=== PATIENT | female | born 1975 | race Caucasian/White ===

== ENCOUNTER 2018-08-08 22:32 | Emergency (ER) | payer SELFPAY ==
[~2018-08-08] VITALS: Ht 162.6 cm; Wt 72.7 kg
[2018-08-09 00:17] LABS: BASOPHILS % (AUTO) 0.9 % (0.0-2.0); EOSINOPHILS % (AUTO) 2.4 % (1.0-6.0); HEMATOCRIT 35.5 % (36-46); LYMPHOCYTES % (AUTO) 47.6 % (22.0-44.0); MEAN CORPUSCULAR HEMOGLOBIN 19.5 pg (26.0-34.0); MEAN CORPUSCULAR HGB CONC 30.9 G/dL (31.0-37.0); MEAN CORPUSCULAR VOLUME 63 fL (80-100); MONOCYTES # (AUTO) 0.7 K/uL (0.1-1.0); MONOCYTES % (AUTO) 6.3 % (2.0-9.0); NEUTROPHILS # (AUTO) 4.5 K/uL (1.8-7.7); NEUTROPHILS % (AUTO) 42.8 % (40.0-70.0); PLATELET COUNT (AUTO) 590 K/uL (150-450); RED BLOOD CELL COUNT(AUTO) 5.64 MIL/uL (4.00-5.20); RED CELL DISTRIBUTION WIDTH 20.2 % (11.5-14.5)
[2018-08-09 00:20] LABS: ANION GAP 9 mmol/L (8-16); CALCIUM, TOTAL 8.8 mg/dL (8.8-10.5); CARBON DIOXIDE 28 mmol/L (22-29); CHLORIDE 104 mmol/L (98-107); CREATININE 0.61 mg/dL (0.60-1.30); GLOMERULAR FILTR. RATE CALC > 60 mL/min (>60); GLUCOSE,RANDOM 94 mg/dL (70-110); POTASSIUM 3.4 mmol/L (3.5-5.1); SODIUM SERUM 141 mmol/L (136-145); UREA NITROGEN, BLOOD 16 mg/dL (7-18)
[2018-08-09 00:32] LABS: ALANINE AMINOTRANSFERASE 34 U/L (12-78); ALBUMIN 3.7 g/dL (3.4-5.0); ALKALINE PHOSPHATASE 79 U/L (46-116); ASPARTATE AMINOTRANSFERASE 21 U/L (15-37); BILIRUBIN,TOTAL 0.5 mg/dL (0.1-1.0); HCG,QUANTITATIVE 1 mIU/mL (0-6)
[2018-08-09] MEDS ORDERED: DIVALPROEX SODIUM 500 MG ER TABLET PO ONE (03:15)
[2018-08-09] MEDS ORDERED: LORazepam 2 MG TABLET PO ONE (03:15)
[2018-08-09 03:25] VITALS: BP 131/89
== END 2018-08-09 03:44 | disposition home or self-care (01) ==
LOC: EDBD → EMS 22:34
DX: F31.9 Bipolar disorder, unspecified (principal); F22 Delusional disorders; F17.210 Nicotine dependence, cigarettes, uncomplicated
CPT/HCPCS: 36415; 80053; 84702; 85025; 99284; G0480

== ENCOUNTER 2021-03-12 12:24 | Inpatient (IN) | payer MEDICAID ==
[~2021-03-12] VITALS: Ht 167.6 cm; Wt 140.2 kg
[~2021-03-12 12:24] MED LIST: RISP1TAB48 PO
[2021-03-12] MEDS ORDERED: GABA-1216 PO (13:30)
[2021-03-12] MEDS ORDERED: GABA-1181 PO (13:30)
[2021-03-12] MEDS ORDERED: FOLI0.4T6 PO (13:31)
[2021-03-12] MEDS ORDERED: INFLUENZA VIRUS VACCINE QVS 2021-22 (6MO+)/PF 60 MCG/0.5 ML SYRINGE IM. ONE (13:45)
[2021-03-12] MEDS ORDERED: PNEUMOCOCCAL VACCINE POLYVALENT 0.5 ML VIAL [PPSV23] IM. ONE (13:45)
[2021-03-12 13:50] VITALS: BP 118/78
[2021-03-12 13:53] LABS: GLUCOMETER DEV NAME(LOC) POC.BV
[2021-03-12] MEDS ORDERED: LORazepam 2 MG/ML VIAL ONE (14:52)
[2021-03-12] MEDS ORDERED: DiphenhydrAMINE HCL 50 MG/ML VIAL IM ONE (15:00)
[2021-03-12] MEDS ORDERED: HALOPERIDOL LACTATE 5 MG/ML VIAL IM ONE (15:00)
[2021-03-12] MEDS ORDERED: LORazepam 2 MG/ML VIAL IM ONE (15:00)
[2021-03-12 16:16] VITALS: BP 137/82
[2021-03-12] MEDS: HALOPERIDOL 5 MG TABLET PO PRN (18:48)
[2021-03-12] MEDS: LORazepam 2 MG TABLET PO PRN (18:48)
[2021-03-12] MEDS: ZOLPIDEM TARTRATE 10 MG TABLET PO PRN (20:49)
[2021-03-13 05:00] VITALS: BP 132/78
[2021-03-13] MEDS: HALOPERIDOL 5 MG TABLET PO PRN ×3 (05:18→14:26)
[2021-03-13] MEDS: LORazepam 2 MG TABLET PO PRN ×3 (05:18→14:26)
[2021-03-13 08:08] LABS: BASOPHILS % (AUTO) 0.6 % (0.0-2.0); HEMATOCRIT 33.9 % (36-46); HEMOGLOBIN 10.5 g/dL (12.0-16.0); LYMPHOCYTES # (AUTO) 2.9 K/uL (1.0-4.8); LYMPHOCYTES % (AUTO) 29.1 % (22.0-44.0); MEAN CORPUSCULAR HEMOGLOBIN 20.4 pg (26.0-34.0); MEAN CORPUSCULAR VOLUME 66 fL (80-100); MONOCYTES # (AUTO) 0.6 K/uL (0.1-1.0); MONOCYTES % (AUTO) 5.8 % (2.0-9.0); NEUTROPHILS # (AUTO) 6.2 K/uL (1.8-7.7); NEUTROPHILS % (AUTO) 62.5 % (40.0-70.0); PLATELET COUNT (AUTO) 383 K/uL (150-450); RED BLOOD CELL COUNT(AUTO) 5.16 MIL/uL (4.00-5.20)
[2021-03-13 08:11] LABS: HEMOGLOBIN A1C 5.5 % (3.8-5.6)
[2021-03-13 08:31] LABS: ALANINE AMINOTRANSFERASE 35 U/L (12-78); ALBUMIN 3.4 g/dL (3.4-5.0); ALKALINE PHOSPHATASE 89 U/L (46-116); ANION GAP 4 mmol/L (8-16); ASPARTATE AMINOTRANSFERASE 25 U/L (15-37); BILIRUBIN,TOTAL 0.8 mg/dL (0.1-1.0); CALCIUM, TOTAL 8.6 mg/dL (8.8-10.5); CARBON DIOXIDE 29 mmol/L (22-29); CHLORIDE 107 mmol/L (98-107); CHOL/HDL RATIO 2.4 (3.9-5.7); CHOLESTEROL 137 mg/dL (131-200); CREATININE 0.58 mg/dL (0.60-1.30); FREE T4 (FREE THYROXINE) 1.32 ng/dL (0.76-1.46); GLOMERULAR FILTR. RATE CALC > 60 mL/min (>60); GLUCOSE,RANDOM 105 mg/dL (70-110); HDL CHOLESTEROL 56 mg/dL (40-60); LDL CHOL (CALC.) 67 mg/dL (0-130); POTASSIUM 3.8 mmol/L (3.5-5.1); SODIUM SERUM 140 mmol/L (136-145); THYROID STIMULATING HORMONE 1.75 uIU/mL (0.36-3.74); TOTAL PROTEIN, SERUM 7.8 g/dL (6.4-8.2); TRIGLYCERIDES 71 mg/dL (15-150); UREA NITROGEN, BLOOD 13 mg/dL (7-18)
[2021-03-13] MEDS: RisperiDONE 1 MG TABLET PO SCH ×2 (10:49→16:19)
[2021-03-13] MEDS: GABAPENTIN 300 MG CAPSULE PO SCH (10:50)
[2021-03-13] MEDS ORDERED: DOCUSATE SODIUM 100 MG CAPSULE PO PRN (11:45)
[2021-03-13] MEDS ORDERED: IBUPROFEN 400 MG TABLET PO PRN (11:45)
[2021-03-13] MEDS ORDERED: MAGNESIUM HYDROXIDE SUSPENSION 30 ML UDCUP PO PRN (11:45)
[2021-03-13] MEDS ORDERED: ONDANSETRON HCL 4 MG TABLET PO PRN (11:45)
[2021-03-13] MEDS ORDERED: ACETAMINOPHEN 325 MG TABLET PO PRN (11:45)
[2021-03-13] MEDS ORDERED: ALBUTEROL SULFATE HFA 90 MCG/PUFF 8 GM INHALER IH PRN (11:45)
[2021-03-13] MEDS ORDERED: PETROLATUM,WHITE 28 GM JELLY TP PRN (11:45)
[2021-03-13] MEDS ORDERED: LOPERAMIDE HCL 2 MG CAPSULE PO PRN (11:45)
[2021-03-13] MEDS ORDERED: CloNIDine HCL 0.1 MG TABLET PO PRN (11:45)
[2021-03-13] MEDS ORDERED: GuaiFENesin/D-METHORPHAN [SUGAR-FREE] 200-20MG/10 ML SYRUP UDCUP PO PRN (11:45)
[2021-03-13] MEDS ORDERED: MAG HYDROX/AL HYDROX/SIMETH ES 30 ML SUSPENSION UDCUP PO PRN (11:45)
[2021-03-13] MEDS ORDERED: NICOTINE 14 MG/24 HOUR PATCH TD PRN (11:45)
[2021-03-13 16:34] VITALS: BP 115/82
[2021-03-13] MEDS: ZOLPIDEM TARTRATE 10 MG TABLET PO PRN (23:18)
[2021-03-14] MEDS: LORazepam 2 MG TABLET PO PRN ×4 (00:48→18:19)
[2021-03-14] MEDS: HALOPERIDOL 5 MG TABLET PO PRN ×4 (00:48→18:19)
[2021-03-14 01:00] VITALS: BP 132/82
[2021-03-14 05:07] LABS: RPR QUANT. (TITER) Non Reactive (NonRea<1:1)
[2021-03-14 08:19] VITALS: BP 125/78
[2021-03-14] MEDS: RisperiDONE 1 MG TABLET PO SCH ×2 (08:21→17:50)
[2021-03-14] MEDS: GABAPENTIN 300 MG CAPSULE PO SCH (08:21)
[2021-03-14 16:16] VITALS: BP 128/78
[2021-03-14] MEDS: ZOLPIDEM TARTRATE 10 MG TABLET PO PRN (22:00)
[2021-03-15 00:49] VITALS: BP 120/74
[2021-03-15] MEDS: RisperiDONE 1 MG TABLET PO SCH ×2 (08:07→16:12)
[2021-03-15] MEDS: GABAPENTIN 300 MG CAPSULE PO SCH (08:07)
[2021-03-15] MEDS: LORazepam 2 MG TABLET PO PRN ×2 (08:08→14:30)
[2021-03-15 08:32] VITALS: BP 149/86
[2021-03-15] MEDS: HALOPERIDOL 5 MG TABLET PO PRN (08:33)
[2021-03-15 10:00] VITALS: BP 134/84
[2021-03-15 16:08] VITALS: BP 126/86
[2021-03-16] MEDS: LORazepam 2 MG TABLET PO PRN (00:24)
[2021-03-16] MEDS: ZOLPIDEM TARTRATE 10 MG TABLET PO PRN (00:24)
[2021-03-16 01:46] VITALS: BP 116/71
[2021-03-16 08:25] VITALS: BP 145/90
[2021-03-16] MEDS: RisperiDONE 1 MG TABLET PO SCH (08:38)
[2021-03-16] MEDS: GABAPENTIN 300 MG CAPSULE PO SCH (08:38)
== END 2021-03-16 21:56 | disposition home or self-care (01) | DRG 753 ==
LOC: B3A 13:37
PROVIDERS: ADMIT Psychiatry & Neurology Child & Adolescent Psychiatry; ATTEND Psychiatry & Neurology Child & Adolescent Psychiatry
DX: F31.2 Bipolar disorder, current episode manic severe with psychotic features (principal); D64.9 Anemia, unspecified; E66.01 Morbid (severe) obesity due to excess calories; I10 Essential (primary) hypertension; Z20.822 Contact with and (suspected) exposure to COVID-19; Z68.42 Body mass index [BMI] 45.0-49.9, adult
CPT/HCPCS: 80053; 80061; 83036; 84439; 84443; 85025; 86592; 86593; 86780; 87081; 90686; 90732; J1200; J1630; J2060

== ENCOUNTER 2022-11-17 13:05 | Inpatient (IN) | payer MEDICAID ==
[~2022-11-17] VITALS: Ht 165.1 cm; Wt 136.1 kg
[~2022-11-17 13:05] MED LIST changes: +QUET25TA PO; -RISP1TAB48 PO
[2022-11-17] MEDS ORDERED: ZOLPIDEM TARTRATE 10 MG TABLET PO PRN (13:45)
[2022-11-17 14:35] VITALS: RESP 18; TEMP 98.2
[2022-11-17 15:00] VITALS: BP 118/69; PULSE 64; RESP 18; TEMP 98.1
[2022-11-17] MEDS: LORazepam 2 MG TABLET PO PRN (16:18)
[2022-11-17] MEDS: HALOPERIDOL 5 MG TABLET PO PRN (16:18)
[2022-11-17 20:00] VITALS: PULSE 80; RESP 18; TEMP 97.6; O2SAT 98
[2022-11-18] MEDS ORDERED: GuaiFENesin/D-METHORPHAN [SUGAR-FREE] 200-20MG/10 ML SYRUP UDCUP PO PRN (07:45)
[2022-11-18] MEDS ORDERED: LOPERAMIDE HCL 2 MG CAPSULE PO PRN (07:45)
[2022-11-18] MEDS ORDERED: IBUPROFEN 400 MG TABLET PO PRN (07:45)
[2022-11-18] MEDS ORDERED: ONDANSETRON HCL 4 MG TABLET PO PRN (07:45)
[2022-11-18] MEDS ORDERED: CloNIDine HCL 0.1 MG TABLET PO PRN (07:45)
[2022-11-18] MEDS ORDERED: ALBUTEROL SULFATE HFA 90 MCG/PUFF 8 GM INHALER IH PRN (07:45)
[2022-11-18] MEDS ORDERED: DOCUSATE SODIUM 100 MG CAPSULE PO PRN (07:45)
[2022-11-18] MEDS ORDERED: MAG HYDROX/AL HYDROX/SIMETH ES 30 ML SUSPENSION UDCUP PO PRN (07:45)
[2022-11-18] MEDS ORDERED: NICOTINE 14 MG/24 HOUR PATCH TD PRN (07:45)
[2022-11-18] MEDS ORDERED: MAGNESIUM HYDROXIDE SUSPENSION 30 ML UDCUP PO PRN (07:45)
[2022-11-18] MEDS ORDERED: ACETAMINOPHEN 325 MG TABLET PO PRN (07:45)
[2022-11-18] MEDS ORDERED: PETROLATUM,WHITE 28 GM JELLY TP PRN (07:45)
[2022-11-18 07:57] LABS: BASOPHILS % (AUTO) 0.5 % (0.0-2.0); EOSINOPHILS % (AUTO) 2.1 % (1.0-6.0); HEMATOCRIT 34.4 % (36-46); HEMOGLOBIN 10.6 g/dL (12.0-16.0); LYMPHOCYTES % (AUTO) 35.9 % (22.0-44.0); MEAN CORPUSCULAR HGB CONC 30.8 G/dL (31.0-37.0); MEAN CORPUSCULAR VOLUME 71 fL (80-100); MONOCYTES # (AUTO) 0.7 K/uL (0.1-1.0); MONOCYTES % (AUTO) 6.4 % (2.0-9.0); NEUTROPHILS # (AUTO) 6.1 K/uL (1.8-7.7); NEUTROPHILS % (AUTO) 55.1 % (40.0-70.0); PLATELET COUNT (AUTO) 465 K/uL (150-450); RED BLOOD CELL COUNT(AUTO) 4.82 MIL/uL (4.00-5.20); RED CELL DISTRIBUTION WIDTH 18.9 % (11.5-14.5)
[2022-11-18] MEDS: LORazepam 2 MG TABLET PO PRN ×3 (08:00→20:57)
[2022-11-18 08:19] LABS: HEMOGLOBIN A1C 5.3 % (3.8-5.6)
[2022-11-18 08:22] LABS: ALANINE AMINOTRANSFERASE 15 U/L (12-78); ALBUMIN 2.5 g/dL (3.4-5.0); ALKALINE PHOSPHATASE 65 U/L (46-116); ANION GAP 2 mmol/L (8-16); ASPARTATE AMINOTRANSFERASE 13 U/L (15-37); BILIRUBIN,TOTAL 0.3 mg/dL (0.1-1.0); CALCIUM, TOTAL 8.3 mg/dL (8.8-10.5); CARBON DIOXIDE 30 mmol/L (22-29); CHLORIDE 106 mmol/L (98-107); CHOLESTEROL 124 mg/dL (131-200); FREE T4 (FREE THYROXINE) 1.13 ng/dL (0.76-1.46); GLOMERULAR FILTR. RATE CALC > 60 mL/min (>60); GLUCOSE,RANDOM 112 mg/dL (70-110); HCG,QUANTITATIVE 1 mIU/mL (0-6); HDL CHOLESTEROL 41 mg/dL (40-60); LDL CHOL (CALC.) 62 mg/dL (0-130); POTASSIUM 3.9 mmol/L (3.5-5.1); SODIUM SERUM 138 mmol/L (136-145); THYROID STIMULATING HORMONE 1.26 uIU/mL (0.36-3.74); TOTAL PROTEIN, SERUM 6.6 g/dL (6.4-8.2); TRIGLYCERIDES 103 mg/dL (15-150)
[2022-11-18 08:23] LABS: VALPROIC ACID < 3 mcg/mL (50-100)
[2022-11-18 09:40] VITALS: BP 103/58; PULSE 78; RESP 19; TEMP 98.4; O2SAT 98
[2022-11-18] MEDS: HALOPERIDOL 5 MG TABLET PO PRN (14:37)
[2022-11-18] MEDS: QUEtiapine FUMARATE 25 MG TABLET PO SCH (20:58)
[2022-11-19 06:57] VITALS: BP 98/62; PULSE 72; RESP 18; TEMP 98.2
[2022-11-19 08:02] LABS: THYROID STIMULATING HORMONE 1.89 uIU/mL (0.36-3.74)
[2022-11-19 08:03] LABS: HEMOGLOBIN A1C 5.4 % (3.8-5.6)
[2022-11-19 08:26] VITALS: BP 104/62; PULSE 73; RESP 16; TEMP 97.9; O2SAT 98
[2022-11-19] MEDS: QUEtiapine FUMARATE 25 MG TABLET PO SCH (08:27)
[2022-11-19] MEDS: LORazepam 2 MG TABLET PO PRN ×2 (09:15→14:19)
[2022-11-19] MEDS ORDERED: QUET25TA PO (10:49)
[2022-11-20 03:06] LABS: HEPATITIS C AB (EIA) Non Reactive (Non Reactive)
== END 2022-11-19 14:00 | disposition home or self-care (01) | DRG 753 ==
LOC: B3A 14:13
PROVIDERS: ADMIT Psychiatry & Neurology Child & Adolescent Psychiatry; ATTEND Psychiatry & Neurology Child & Adolescent Psychiatry
DX: F31.5 Bipolar disorder, current episode depressed, severe, with psychotic features (principal); R45.851 Suicidal ideations; Z88.5 Allergy status to narcotic agent; Z88.8 Allergy status to other drugs, medicaments and biological substances
CPT/HCPCS: 80053; 80061; 80164; 83036; 84436; 84439; 84443; 84702; 85025; 86592; 86803; 87340; G0480

== ENCOUNTER 2023-11-15 10:21 | Emergency (ER) | payer MEDICARE, OTHER ==
[~2023-11-15] VITALS: Ht 162.6 cm; Wt 113.6 kg
[~2023-11-15 10:21] MED LIST changes: +BUPR-49 PO; +DIVA500T69 PO; +GABA-1181 PO; +HYDR50CA7 PO; +QUET200T5 PO; -QUET25TA PO
[2023-11-15 10:39] VITALS: BP 145/73; PULSE 88; RESP 18; TEMP 98
[2023-11-15] MEDS ORDERED: RISP3TAB77 PO (10:50)
[2023-11-15] MEDS ORDERED: LOXA50CA PO (10:50)
[2023-11-15] MEDS ORDERED: QUET200T PO (10:50)
[2023-11-15] MEDS ORDERED: PRAZ1 PO (10:50)
[2023-11-15] MEDS ORDERED: CHOL500013 PO (10:50)
[2023-11-15] MEDS ORDERED: HYDR-4527 PO (10:50)
[2023-11-15] MEDS ORDERED: CEFU250T87 PO (10:50)
== END 2023-11-15 12:09 | disposition home or self-care (01) ==
LOC: EMS 10:21
DX: F41.9 Anxiety disorder, unspecified (principal); F17.210 Nicotine dependence, cigarettes, uncomplicated; F12.90 Cannabis use, unspecified, uncomplicated; Z88.5 Allergy status to narcotic agent; Z88.8 Allergy status to other drugs, medicaments and biological substances
CPT/HCPCS: 99283; Z7502

== ENCOUNTER 2024-01-21 21:02 | Inpatient (IN) | payer MEDICARE, MEDICAID ==
[~2024-01-21] VITALS: Ht 165.1 cm; Wt 126.0 kg
[~2024-01-21 21:02] MED LIST changes: -BUPR-49 PO; +CEFU250T87 PO; +CHOL500013 PO; -GABA-1181 PO; +HYDR-4527 PO; -HYDR50CA7 PO; +LOXA50CA PO; +PRAZ1 PO; +QUET200T PO; -QUET200T5 PO; +RISP3TAB77 PO
[2024-01-21] MEDS ORDERED: HALOPERIDOL 5 MG TABLET PO PRN (21:30)
[2024-01-21] MEDS ORDERED: INFLUENZA VIRUS VACCINE TVS (6MO+) 2024-25/PF 45 MCG/0.5 ML SYRINGE IM. ONE (22:30)
[2024-01-21] MEDS: ZOLPIDEM TARTRATE 10 MG TABLET PO PRN (22:47)
[2024-01-21 23:48] VITALS: BP 133/73; PULSE 66; RESP 18; TEMP 97.6; O2SAT 96
[2024-01-22] MEDS ORDERED: INFLUENZA VIRUS VACCINE TVS (6MO+) 2024-25/PF 45 MCG/0.5 ML SYRINGE IM. ONE (01:00)
[2024-01-22 08:02] LABS: BASOPHILS % (AUTO) 0.5 % (0.0-2.0); EOSINOPHILS % (AUTO) 2.3 % (1.0-6.0); HEMATOCRIT 38.2 % (36-46); LYMPHOCYTES # (AUTO) 4.3 K/uL (1.0-4.8); LYMPHOCYTES % (AUTO) 45.4 % (22.0-44.0); MEAN CORPUSCULAR HEMOGLOBIN 21.9 pg (26.0-34.0); MEAN CORPUSCULAR HGB CONC 31.3 G/dL (31.0-37.0); MEAN CORPUSCULAR VOLUME 70 fL (80-100); MONOCYTES # (AUTO) 0.5 K/uL (0.1-1.0); MONOCYTES % (AUTO) 5.4 % (2.0-9.0); NEUTROPHILS # (AUTO) 4.4 K/uL (1.8-7.7); NEUTROPHILS % (AUTO) 46.4 % (40.0-70.0); PLATELET COUNT (AUTO) 409 K/uL (150-450); RED BLOOD CELL COUNT(AUTO) 5.48 MIL/uL (4.00-5.20); RED CELL DISTRIBUTION WIDTH 19.5 % (11.5-14.5); WHITE BLOOD COUNT (AUTO) 9.4 K/uL (4.5-11.0)
[2024-01-22 08:05] LABS: HEMOGLOBIN A1C 5.5 % (3.8-5.6)
[2024-01-22 08:22] LABS: ANION GAP 6 mmol/L (8-16); CARBON DIOXIDE 31 mmol/L (22-29); CHLORIDE 102 mmol/L (98-107); CREATININE 0.55 mg/dL (0.60-1.30); GLUCOSE,RANDOM 92 mg/dL (70-110); POTASSIUM 4.7 mmol/L (3.5-5.1); SODIUM SERUM 139 mmol/L (136-145); UREA NITROGEN, BLOOD 12 mg/dL (7-18)
[2024-01-22 08:23] LABS: ALANINE AMINOTRANSFERASE 20 U/L (12-78); ALKALINE PHOSPHATASE 87 U/L (46-116); ASPARTATE AMINOTRANSFERASE 16 U/L (15-37); BILIRUBIN,TOTAL 0.6 mg/dL (0.1-1.0); CALCIUM, TOTAL 8.9 mg/dL (8.8-10.5); CHOLESTEROL 152 mg/dL (131-200); FREE T4 (FREE THYROXINE) 1.06 ng/dL (0.76-1.46); GLOMERULAR FILTR. RATE CALC > 60 mL/min (>60); HCG,QUANTITATIVE < 1 mIU/mL (0-6); HDL CHOLESTEROL 50 mg/dL (40-60); LDL CHOL (CALC.) 87 mg/dL (0-130); THYROID STIMULATING HORMONE 1.65 uIU/mL (0.36-3.74); TOTAL PROTEIN, SERUM 7.5 g/dL (6.4-8.2); TRIGLYCERIDES 73 mg/dL (15-150)
[2024-01-22 08:31] LABS: RBC MORPHOLOGY COMMENT ABNORMAL RBC MORPH
[2024-01-22 08:33] VITALS: BP 119/65; PULSE 83; RESP 16; TEMP 98; O2SAT 97
[2024-01-22 08:52] LABS: VALPROIC ACID < 3 mcg/mL (50-100)
[2024-01-22] MEDS ORDERED: DOCUSATE SODIUM 100 MG CAPSULE PO PRN (10:45)
[2024-01-22] MEDS ORDERED: MAGNESIUM HYDROXIDE SUSPENSION 30 ML UDCUP PO PRN (10:45)
[2024-01-22] MEDS ORDERED: LOPERAMIDE HCL 2 MG CAPSULE PO PRN (10:45)
[2024-01-22] MEDS ORDERED: PETROLATUM,WHITE 28 GM JELLY TP PRN (10:45)
[2024-01-22] MEDS ORDERED: NICOTINE 14 MG/24 HOUR PATCH TD PRN (10:45)
[2024-01-22] MEDS ORDERED: CloNIDine HCL 0.1 MG TABLET PO PRN (10:45)
[2024-01-22] MEDS ORDERED: MAG HYDROX/ALUMINUM HYD/SIMETH ES 30 ML SUSPENSION UDCUP PO PRN (10:45)
[2024-01-22] MEDS ORDERED: ONDANSETRON 4 MG TABLET PO PRN (10:45)
[2024-01-22] MEDS ORDERED: ALBUTEROL SULFATE HFA 90 MCG/PUFF 8 GM INHALER IH PRN (10:45)
[2024-01-22] MEDS ORDERED: GuaiFENesin/D-METHORPHAN [SUGAR-FREE] 200-20MG/10 ML SYRUP UDCUP PO PRN (10:45)
[2024-01-22] MEDS: LORazepam 2 MG TABLET PO PRN (17:48)
[2024-01-22 20:20] VITALS: BP 130/84; PULSE 99; RESP 17; TEMP 97.6; O2SAT 98
[2024-01-22] MEDS: RisperiDONE 3 MG TABLET PO SCH (21:00)
[2024-01-23] VITALS (14 sets, daily range): BP systolic 99–164; BP diastolic 43–98; PULSE 75–100; RESP 16–18; TEMP 96.4–97.9; O2SAT 97–100
[2024-01-23] MEDS: IBUPROFEN 400 MG TABLET PO PRN (06:23)
[2024-01-23] MEDS: CHOLECALCIFEROL (VIT D3) 5,000 [125 MCG] UNITS CAPSULE PO SCH (08:34)
[2024-01-23] MEDS: MULTIVITAMINS, THERAPEUTIC TABLET PO SCH (08:49)
[2024-01-23 09:11] LABS: HEMOGLOBIN A1C 5.4 % (3.8-5.6)
[2024-01-23 09:16] LABS: CHOL/HDL RATIO 2.8 (3.9-5.7); THYROID STIMULATING HORMONE 1.78 uIU/mL (0.36-3.74)
[2024-01-23] MEDS: GABAPENTIN 300 MG CAPSULE PO PRN (10:30)
[2024-01-24 04:24] VITALS: RESP 17
[2024-01-24] MEDS: ACETAMINOPHEN 325 MG TABLET PO PRN (04:25)
[2024-01-24 08:30] VITALS: BP 155/86; PULSE 102; RESP 18; TEMP 97.6; O2SAT 98
[2024-01-24] MEDS ORDERED: RISP3TAB77 PO (13:27)
[2024-01-24 14:46] VITALS: RESP 17
== END 2024-01-24 19:00 | disposition home or self-care (01) | DRG 885 ==
LOC: B3A 21:15
PROVIDERS: ADMIT Psychiatry & Neurology Child & Adolescent Psychiatry; ATTEND Psychiatry & Neurology Psychiatry
PROC: GZHZZZZ Group Psychotherapy (ICD-10-PCS; principal; 2024-01-22)
PROC: GZ51ZZZ Individual Psychotherapy, Behavioral (ICD-10-PCS; 2024-01-22)
DX: F25.0 Schizoaffective disorder, bipolar type (principal); R45.851 Suicidal ideations; Z68.41 Body mass index [BMI] 40.0-44.9, adult; E55.9 Vitamin D deficiency, unspecified; F41.9 Anxiety disorder, unspecified; G90.A Postural orthostatic tachycardia syndrome [POTS]; E66.01 Morbid (severe) obesity due to excess calories; G47.00 Insomnia, unspecified; Z79.899 Other long term (current) drug therapy; Z88.5 Allergy status to narcotic agent; Z88.8 Allergy status to other drugs, medicaments and biological substances; Z91.51 Personal history of suicidal behavior; Z98.84 Bariatric surgery status
CPT/HCPCS: 80053; 80061; 80164; 83036; 84439; 84443; 84702; 85025

== ENCOUNTER 2024-01-23 03:57 | Emergency (ER) | payer MEDICARE, OTHER ==
[~2024-01-23 03:57] MED LIST changes: -DIVA500T69 PO; -HYDR-4527 PO; -LOXA50CA PO; -PRAZ1 PO; -QUET200T PO
[2024-01-24] MEDS ORDERED: RISP3TAB77 PO (13:27)
== END 2024-01-23 05:45 | disposition short-term general hospital (02) ==
LOC: EMS 04:03
DX: S00.03XA Contusion of scalp, initial encounter (principal); F32.9 Major depressive disorder, single episode, unspecified; F41.9 Anxiety disorder, unspecified; F12.90 Cannabis use, unspecified, uncomplicated; F17.210 Nicotine dependence, cigarettes, uncomplicated; Z98.890 Other specified postprocedural states; Z88.5 Allergy status to narcotic agent; Z98.84 Bariatric surgery status; W19.XXXA Unspecified fall, initial encounter; Y93.89 Activity, other specified; Y92.89 Other specified places as the place of occurrence of the external cause; Y99.8 Other external cause status
CPT/HCPCS: 99285; Z7502

== ENCOUNTER 2024-01-27 20:16 | Inpatient (IN) | payer MEDICARE, MEDICAID ==
[~2024-01-27] VITALS: Ht 165.1 cm; Wt 127.9 kg
[~2024-01-27 20:16] MED LIST changes: -CEFU250T87 PO; -CHOL500013 PO
[2024-01-27 20:59] LABS: BASOPHILS % (AUTO) 0.6 % (0.0-2.0); EOSINOPHILS % (AUTO) 1.9 % (1.0-6.0); HEMATOCRIT 34.9 % (36-46); HEMOGLOBIN 10.8 g/dL (12.0-16.0); LYMPHOCYTES # (AUTO) 4.3 K/uL (1.0-4.8); LYMPHOCYTES % (AUTO) 36.8 % (22.0-44.0); MEAN CORPUSCULAR HEMOGLOBIN 21.8 pg (26.0-34.0); MEAN CORPUSCULAR VOLUME 70 fL (80-100); MONOCYTES # (AUTO) 0.8 K/uL (0.1-1.0); MONOCYTES % (AUTO) 6.6 % (2.0-9.0); NEUTROPHILS # (AUTO) 6.3 K/uL (1.8-7.7); NEUTROPHILS % (AUTO) 54.1 % (40.0-70.0); PLATELET COUNT (AUTO) 393 K/uL (150-450); RED BLOOD CELL COUNT(AUTO) 4.97 MIL/uL (4.00-5.20); RED CELL DISTRIBUTION WIDTH 20.3 % (11.5-14.5); WHITE BLOOD COUNT (AUTO) 11.6 K/uL (4.5-11.0)
[2024-01-27 21:07] LABS: ANION GAP 6 mmol/L (8-16); CALCIUM, TOTAL 8.5 mg/dL (8.8-10.5); CARBON DIOXIDE 30 mmol/L (22-29); CHLORIDE 105 mmol/L (98-107); CREATININE 0.71 mg/dL (0.60-1.30); GLOMERULAR FILTR. RATE CALC > 60 mL/min (>60); GLUCOSE,RANDOM 97 mg/dL (70-110); SODIUM SERUM 141 mmol/L (136-145); UREA NITROGEN, BLOOD 21 mg/dL (7-18)
[2024-01-27 21:23] LABS: RBC MORPHOLOGY COMMENT ABNORMAL RBC MORPH
[2024-01-27 21:34] LABS: ALCOHOL, BLOOD (SERUM) < 3 mg/dL (0-10)
[2024-01-27] MEDS ORDERED: MAGNESIUM HYDROXIDE SUSPENSION 30 ML UDCUP PO PRN (22:00)
[2024-01-27] MEDS ORDERED: LOPERAMIDE HCL 2 MG CAPSULE PO PRN (22:00)
[2024-01-27] MEDS ORDERED: MAG HYDROX/ALUMINUM HYD/SIMETH ES 30 ML SUSPENSION UDCUP PO PRN (22:00)
[2024-01-27] MEDS ORDERED: GuaiFENesin/D-METHORPHAN [SUGAR-FREE] 200-20MG/10 ML SYRUP UDCUP PO PRN (22:00)
[2024-01-27] MEDS ORDERED: TUBERCULIN, PURIFIED PROTEIN DERIVATIVE 5 TU/0.1 ML SYRINGE ID ONE (22:00)
[2024-01-27] MEDS: LORazepam 2 MG TABLET PO ONE (22:04)
[2024-01-27] MEDS: PROMETHAZINE HCL 25 MG TABLET PO PRN (23:00)
[2024-01-27] MEDS: HydrOXYzine PAMOATE 50 MG CAPSULE PO PRN (23:00)
[2024-01-27] MEDS: OLANZapine 5 MG RAPDIS TABLET PO PRN (23:01)
[2024-01-28] MEDS: ACETAMINOPHEN 325 MG TABLET PO PRN (07:43)
[2024-01-28] MEDS: LORazepam 2 MG TABLET PO PRN (07:44)
[2024-01-28 07:57] LABS: COVID AG,FIA SOURCE NASAL SWAB
[2024-01-28 08:19] LABS: SARS-COV2 (COVID) ANTIGEN,FIA Negative (Negative)
[2024-01-28] MEDS: MULTIVITAMINS WITH MINERALS, THERAPEUTIC TABLET PO SCH (08:58)
[2024-01-28] MEDS: FOLIC ACID 1 MG TABLET PO SCH (08:58)
[2024-01-28] MEDS: DIVALPROEX SODIUM 500 MG ER TABLET PO SCH (08:58)
[2024-01-28] MEDS: OLANZapine 5 MG RAPDIS TABLET PO SCH (08:59)
[2024-01-28] MEDS: THIAMINE 100 MG TABLET PO SCH (08:59)
[2024-01-28 09:11] LABS: CHOL/HDL RATIO 2.4 (3.9-5.7); CHOLESTEROL 125 mg/dL (131-200); FREE T4 (FREE THYROXINE) 1.16 ng/dL (0.76-1.46); HDL CHOLESTEROL 53 mg/dL (40-60); LDL CHOL (CALC.) 57 mg/dL (0-130); THYROID STIMULATING HORMONE 1.85 uIU/mL (0.36-3.74); TRIGLYCERIDES 73 mg/dL (15-150)
[2024-01-28 09:15] VITALS: O2SAT 97
[2024-01-28 12:31] VITALS: BP 110/77; PULSE 74; RESP 20; TEMP 98.1; O2SAT 97
[2024-01-28] MEDS: NALTREXONE HCL 50 MG TABLET PO SCH (13:00)
[2024-01-28] MEDS: MELATONIN 5 MG TABLET PO SCH (20:34)
[2024-01-28] MEDS: QUEtiapine FUMARATE 200 MG TABLET PO SCH (20:34)
[2024-01-28] MEDS: ZOLPIDEM TARTRATE 10 MG TABLET PO PRN (22:39)
[2024-01-28 22:45] VITALS: BP 112/77; PULSE 74; RESP 18; TEMP 97.4; O2SAT 97
[2024-01-29] MEDS: QUEtiapine FUMARATE 100 MG TABLET PO PRN (03:55)
[2024-01-29 09:44] VITALS: BP 130/82; PULSE 100; RESP 18; TEMP 97.9; O2SAT 98
[2024-01-29 09:53] VITALS: BP 130/82; PULSE 100; RESP 18; TEMP 97.9; O2SAT 98
[2024-01-29] MEDS: NYSTATIN 15 GM POWDER BOTTLE TP SCH (09:59)
[2024-01-29] MEDS: HALOPERIDOL DECANOATE 100 MG/ML VIAL IM ONE (17:30)
[2024-01-29 20:18] VITALS: BP 103/62; PULSE 87; RESP 18; TEMP 97.1; O2SAT 100
[2024-01-29] MEDS: HALOPERIDOL 10 MG TABLET PO SCH (22:27)
[2024-01-30 02:00] VITALS: BP 128/72; PULSE 85; RESP 18; TEMP 97; O2SAT 98
[2024-01-30 08:09] VITALS: BP 129/81; PULSE 95; RESP 18; TEMP 96.9; O2SAT 98
[2024-01-30 08:10] VITALS: BP 129/81; PULSE 95; RESP 18; TEMP 96.9; O2SAT 98
[2024-01-30] MEDS: HALOPERIDOL 5 MG TABLET PO PRN (08:14)
[2024-01-30] MEDS: TRIHEXYPHENIDYL HCL 5 MG TABLET PO SCH (08:15)
[2024-01-30] MEDS: HALOPERIDOL DECANOATE 100 MG/ML VIAL IM ONE (18:39)
[2024-01-30] MEDS: HALOPERIDOL 10 MG TABLET PO SCH (20:47)
[2024-01-30 21:50] VITALS: BP 146/50; PULSE 89; RESP 18; TEMP 97.1
[2024-01-30] MEDS: GABAPENTIN 300 MG CAPSULE PO PRN (22:41)
[2024-01-31 00:08] VITALS: BP 142/60; PULSE 86; RESP 18; TEMP 97
[2024-01-31 08:34] VITALS: BP 130/89; PULSE 91; RESP 17; TEMP 97.4; O2SAT 100
[2024-01-31] MEDS ORDERED: PALIPERIDONE PALMITATE 156 MG/ML SYRINGE IM ONE (09:00)
[2024-01-31] MEDS: GABAPENTIN 300 MG CAPSULE PO SCH (09:33)
[2024-01-31] MEDS: PALIPERIDONE PALMITATE 234 MG/1.5 ML SYRINGE IM ONE (12:02)
[2024-01-31 20:37] VITALS: BP 109/70; PULSE 87; RESP 18; TEMP 97.8; O2SAT 99
[2024-02-01 08:30] VITALS: BP 157/101; PULSE 105; RESP 19; TEMP 97.9; O2SAT 97
[2024-02-01 20:32] VITALS: RESP 17; TEMP 97.9
[2024-02-02 08:41] VITALS: BP 133/83; PULSE 98; RESP 18; TEMP 97.7; O2SAT 99
[2024-02-02 20:31] VITALS: BP 158/91; PULSE 87; RESP 18; TEMP 97.8; O2SAT 99
[2024-02-02] MEDS ORDERED: HALO10TA21 PO (21:15)
[2024-02-02] MEDS ORDERED: MELA5TAB40 PO (21:15)
[2024-02-02] MEDS ORDERED: NALT50TA33 PO (21:15)
[2024-02-02] MEDS ORDERED: GABA-1181 PO (21:15)
[2024-02-02] MEDS ORDERED: TRIH5TAB3 PO (21:15)
[2024-02-02] MEDS ORDERED: DIVA-153 PO (21:15)
[2024-02-03 04:31] VITALS: BP 136/87; PULSE 86; RESP 18; TEMP 97.8; O2SAT 99
[2024-02-03 05:31] VITALS: RESP 18
[2024-02-03] MEDS ORDERED: NYST30CR9 TP (09:37)
[2024-02-03 11:33] VITALS: BP 109/81; PULSE 100; RESP 18; TEMP 97.1; O2SAT 99
[2024-02-12] MEDS ORDERED: HALOPERIDOL DECANOATE 100 MG/ML VIAL IM SCH (09:00)
== END 2024-02-03 19:12 | disposition left against medical advice (07) | DRG 885 ==
LOC: EMS 20:16 → EDBEDREQ 01-28 07:52 → 3EI 01-28 10:26 → 3EC 01-29 08:13
PROVIDERS: ADMIT Psychiatry & Neurology Psychiatry; ATTEND Psychiatry & Neurology Psychiatry
PROC: GZHZZZZ Group Psychotherapy (ICD-10-PCS; principal; 2024-01-28)
PROC: GZ51ZZZ Individual Psychotherapy, Behavioral (ICD-10-PCS; 2024-01-28)
DX: F25.0 Schizoaffective disorder, bipolar type (principal); G93.41 Metabolic encephalopathy; R45.851 Suicidal ideations; F43.10 Post-traumatic stress disorder, unspecified; G90.A Postural orthostatic tachycardia syndrome [POTS]; Z20.822 Contact with and (suspected) exposure to COVID-19; G40.409 Other generalized epilepsy and epileptic syndromes, not intractable, without status epilepticus; F17.200 Nicotine dependence, unspecified, uncomplicated; J44.9 Chronic obstructive pulmonary disease, unspecified; Z53.29 Procedure and treatment not carried out because of patient's decision for other reasons; F41.9 Anxiety disorder, unspecified; Z88.5 Allergy status to narcotic agent; Z98.84 Bariatric surgery status; Z88.8 Allergy status to other drugs, medicaments and biological substances; Z91.199 Patient's noncompliance with other medical treatment and regimen due to unspecified reason
CPT/HCPCS: 80048; 80061; 80164; 80173; 83036; 84439; 84443; 84703; 85025; 86592; 87081; 99285; G0480; J1631

== ENCOUNTER 2024-09-16 04:38 | Inpatient (IN) | payer MEDICARE, MEDICAID ==
[~2024-09-16] VITALS: Ht 160 cm; Wt 102.0 kg
[~2024-09-16 04:38] MED LIST changes: +DIVA-153 PO; +GABA-1181 PO; +HALO10TA21 PO; +MELA5TAB40 PO; +NALT50TA33 PO; -RISP3TAB77 PO; +TRIH5TAB3 PO
[2024-09-16] MEDS: LORazepam 2 MG/ML VIAL IM ONE (06:03)
[2024-09-16] MEDS: haloperidoL LACTATE 5 MG/ML VIAL IM ONE (06:03)
[2024-09-16] MEDS: DiphenhydrAMINE HCL 50 MG/ML VIAL IM ONE (06:03)
[2024-09-16 07:34] LABS: BASOPHILS % (AUTO) 0.6 % (0.0-2.0); HEMATOCRIT 38.9 % (36-46); HEMOGLOBIN 12.3 g/dL (12.0-16.0); LYMPHOCYTES # (AUTO) 3.4 K/uL (1.0-4.8); LYMPHOCYTES % (AUTO) 21.6 % (22.0-44.0); MEAN CORPUSCULAR HEMOGLOBIN 24.5 pg (26.0-34.0); MEAN CORPUSCULAR HGB CONC 31.7 G/dL (31.0-37.0); MEAN CORPUSCULAR VOLUME 77 fL (80-100); MONOCYTES # (AUTO) 0.8 K/uL (0.1-1.0); MONOCYTES % (AUTO) 5.1 % (2.0-9.0); NEUTROPHILS # (AUTO) 11.1 K/uL (1.8-7.7); NEUTROPHILS % (AUTO) 70.7 % (40.0-70.0); PLATELET COUNT (AUTO) 424 K/uL (150-450); RED BLOOD CELL COUNT(AUTO) 5.03 MIL/uL (4.00-5.20); RED CELL DISTRIBUTION WIDTH 16.5 % (11.5-14.5); WHITE BLOOD COUNT (AUTO) 15.6 K/uL (4.5-11.0)
[2024-09-16 07:42] LABS: ANION GAP 7 mmol/L (8-16); CALCIUM, TOTAL 8.8 mg/dL (8.8-10.5); CARBON DIOXIDE 28 mmol/L (22-29); CHLORIDE 104 mmol/L (98-107); CREATININE 0.75 mg/dL (0.60-1.30); GLOMERULAR FILTR. RATE CALC > 60 mL/min (>60); GLUCOSE,RANDOM 82 mg/dL (70-110); POTASSIUM 3.9 mmol/L (3.5-5.1); SODIUM SERUM 139 mmol/L (136-145); UREA NITROGEN, BLOOD 15 mg/dL (7-18)
[2024-09-16 08:06] LABS: RBC MORPHOLOGY COMMENT ABNORMAL RBC MORPH
[2024-09-16 09:35] LABS: COVID AG,FIA SOURCE NASAL SWAB
[2024-09-16 10:11] LABS: SARS-COV2 (COVID) ANTIGEN,FIA Negative (Negative)
[2024-09-16] MEDS ORDERED: haloperidoL 5 MG TABLET PO PRN (10:45)
[2024-09-16 12:26] VITALS: O2SAT 100
[2024-09-16 13:20] VITALS: BP 110/98; PULSE 97; RESP 18; TEMP 97.3; O2SAT 100
[2024-09-16] MEDS ORDERED: DOCUSATE SODIUM 100 MG CAPSULE PO PRN (18:30)
[2024-09-16] MEDS ORDERED: ALBUTEROL SULFATE HFA 90 MCG/PUFF 8 GM INHALER IH PRN (18:30)
[2024-09-16] MEDS ORDERED: IBUPROFEN 600 MG TABLET PO PRN (18:30)
[2024-09-16] MEDS ORDERED: BACITRACIN 28 GM OINTMENT TP PRN (18:30)
[2024-09-16] MEDS ORDERED: OMEPRAZOLE 20 MG CAPSULE PO PRN (18:30)
[2024-09-16] MEDS ORDERED: CloNIDine HCL 0.1 MG TABLET PO PRN (18:30)
[2024-09-16] MEDS ORDERED: ONDANSETRON 4 MG TABLET PO PRN (18:30)
[2024-09-16] MEDS ORDERED: LOPERAMIDE HCL 2 MG CAPSULE PO PRN (18:30)
[2024-09-16] MEDS ORDERED: MAG HYDROX/ALUMINUM HYD/SIMETH ES 30 ML SUSPENSION UDCUP PO PRN (18:30)
[2024-09-16] MEDS ORDERED: ACETAMINOPHEN 325 MG TABLET PO PRN (18:30)
[2024-09-16] MEDS ORDERED: PETROLATUM,WHITE 28 GM JELLY TP PRN (18:30)
[2024-09-16] MEDS ORDERED: MAGNESIUM HYDROXIDE SUSPENSION 30 ML UDCUP PO PRN (18:30)
[2024-09-16 20:00] VITALS: BP 125/78; PULSE 84; RESP 17; TEMP 97.4; O2SAT 100
[2024-09-16] MEDS: ZOLPIDEM TARTRATE 10 MG TABLET PO PRN (22:03)
[2024-09-16] MEDS: LORazepam 2 MG TABLET PO PRN (22:59)
[2024-09-17] MEDS: BENZOCAINE/MENTHOL [CEPACOL] LOZENGE PO PRN (01:59)
[2024-09-17 08:24] VITALS: BP 106/67; PULSE 100; RESP 16; TEMP 97.9; O2SAT 99
[2024-09-17 09:32] LABS: BASOPHILS % (AUTO) 0.3 % (0.0-2.0); EOSINOPHILS % (AUTO) 2.7 % (1.0-6.0); HEMATOCRIT 39.3 % (36-46); HEMOGLOBIN 12.7 g/dL (12.0-16.0); LYMPHOCYTES # (AUTO) 2.8 K/uL (1.0-4.8); MEAN CORPUSCULAR HGB CONC 32.4 G/dL (31.0-37.0); MEAN CORPUSCULAR VOLUME 77 fL (80-100); MONOCYTES # (AUTO) 0.6 K/uL (0.1-1.0); MONOCYTES % (AUTO) 5.5 % (2.0-9.0); NEUTROPHILS # (AUTO) 7.8 K/uL (1.8-7.7); NEUTROPHILS % (AUTO) 67.5 % (40.0-70.0); PLATELET COUNT (AUTO) 448 K/uL (150-450); RED CELL DISTRIBUTION WIDTH 16.6 % (11.5-14.5); WHITE BLOOD COUNT (AUTO) 11.6 K/uL (4.5-11.0)
[2024-09-17 09:57] LABS: ALANINE AMINOTRANSFERASE 14 U/L (12-78); ALBUMIN 2.8 g/dL (3.4-5.0); ALKALINE PHOSPHATASE 86 U/L (46-116); ANION GAP 4 mmol/L (8-16); ASPARTATE AMINOTRANSFERASE 14 U/L (15-37); BILIRUBIN,TOTAL 0.9 mg/dL (0.1-1.0); CALCIUM, TOTAL 8.5 mg/dL (8.8-10.5); CARBON DIOXIDE 30 mmol/L (22-29); CHLORIDE 105 mmol/L (98-107); CHOL/HDL RATIO 2.2 (3.9-5.7); CHOLESTEROL 112 mg/dL (131-200); CREATININE 0.62 mg/dL (0.60-1.30); GLOMERULAR FILTR. RATE CALC > 60 mL/min (>60); GLUCOSE,RANDOM 57 mg/dL (70-110); HDL CHOLESTEROL 50 mg/dL (40-60); LDL CHOL (CALC.) 52 mg/dL (0-130); POTASSIUM 4.2 mmol/L (3.5-5.1); SODIUM SERUM 139 mmol/L (136-145); T4 (THYROXINE) 7.8 mcg/dL (4.7-13.3); TOTAL PROTEIN, SERUM 6.7 g/dL (6.4-8.2); TRIGLYCERIDES 52 mg/dL (15-150); UREA NITROGEN, BLOOD 11 mg/dL (7-18)
[2024-09-17 10:23] LABS: RBC MORPHOLOGY COMMENT ABNORMAL RBC MORPH
[2024-09-17] MEDS: DIVALPROEX SODIUM 500 MG ER TABLET PO SCH (17:23)
[2024-09-17 20:59] VITALS: BP 112/85; PULSE 96; RESP 16; TEMP 97.2; O2SAT 100
[2024-09-18] MEDS: ARIPiprazole 5 MG TABLET PO SCH (09:00)
[2024-09-19] MEDS ORDERED: CIPR250T6 PO (11:36)
[2024-09-19] MEDS ORDERED: BENZ2TAB84 PO (11:43)
[2024-09-20] MEDS ORDERED: NITR50CA PO (09:55)
== END 2024-09-18 18:12 | disposition short-term general hospital (02) | DRG 885 ==
LOC: EMS 05:02 → B3A 13:03
PROVIDERS: ADMIT Psychiatry & Neurology Psychiatry; ATTEND Psychiatry & Neurology Psychiatry
DX: F20.9 Schizophrenia, unspecified (principal); F41.9 Anxiety disorder, unspecified; F12.10 Cannabis abuse, uncomplicated; D72.829 Elevated white blood cell count, unspecified; E66.9 Obesity, unspecified; K59.00 Constipation, unspecified; Z20.822 Contact with and (suspected) exposure to COVID-19; G47.00 Insomnia, unspecified; F31.9 Bipolar disorder, unspecified; F43.10 Post-traumatic stress disorder, unspecified; Z87.891 Personal history of nicotine dependence; Z98.84 Bariatric surgery status; Z88.5 Allergy status to narcotic agent; Z88.8 Allergy status to other drugs, medicaments and biological substances; Z68.39 Body mass index [BMI] 39.0-39.9, adult
CPT/HCPCS: 80048; 80053; 80061; 83036; 84436; 84439; 84703; 85025; 96372; 99285; G0480; J1200; J1630; J2060

== ENCOUNTER 2024-09-19 12:33 | Emergency (ER) | payer OTHER ==
[~2024-09-19 12:33] MED LIST changes: +BENZ2TAB84 PO; +CIPR250T6 PO
[2024-09-20] MEDS ORDERED: NITR50CA PO (09:55)
== END 2024-09-19 12:44 | disposition left against medical advice (07) ==
LOC: EMS 12:33
DX: Z00.8 Encounter for other general examination (principal); Z53.21 Procedure and treatment not carried out due to patient leaving prior to being seen by health care provider